=== PATIENT | female | born 1970 | race Caucasian/White ===

== ENCOUNTER 2016-11-28 18:24 | Emergency (ER) | payer SELFPAY ==
[~2016-11-28] VITALS: Ht 165.1 cm; Wt 61.5 kg
[2016-11-29] MEDS ORDERED: ACETAMINOPHEN 325MG TABLET PO ONE (16:15)
[2016-11-29 20:00] VITALS: BP 124/75
== END 2016-11-29 20:24 | disposition home or self-care (01) ==
LOC: ER 20:56
DX: F32.9 Major depressive disorder, single episode, unspecified (principal)
CPT/HCPCS: 99283